=== PATIENT | female | born 1935 | race Caucasian/White ===

== ENCOUNTER 2019-10-24 03:34 | Emergency (ER) | payer OTHER ==
--- NOTE | 2019-10-24 03:43 | PDOC ---
Attending Attestation - Resident Resident Name: García Thompson - HPI HPI: 10/24/19 05:06 Pt presents to the ED after brought in by her daughter for the acute onset of aphasia. Patient was last seen well at 11:58 pm. Patient is now completely aphasic and unable to communicate or follow commands. As per the daughter, her baseline is to be oriented x 3 and completely alert. 10/24/19 05:17 - Physicial Exam PE: 10/24/19 05:11 Agree with resident exam. Patient opens her eyes to questioning, but does not speak or follow commands. Appears to have L sided neglect. Neurologic exam is difficult because the patient is unable to cooperate 10/24/19 05:14 - Medical Decision Making 10/24/19 05:13 Pt presents to the ED with the acute onset of profound neurological deficits, including aphasia and L sided neglect. Taken emergently for CT head which showed ? MCA sign. CTA shows occlusion of the MCA. Given that the patient is within the 12 hour window for vascular interventions, will intiate transfer to [facility] for neurovascular intervention. 10/24/19 05:15
--- NOTE | 2019-10-24 04:04 | PDOC ---
History of Present Illness - General Stated Complaint: POSSIBLE STROKE Time Seen by Provider: 10/24/19 03:43 - History of Present Illness Initial Comments: The pt is an 84F w/ a history of uncontrolled HTN who presented for evaluation with concern of stroke. The pt was last known well on 10/23/19 at 2358. She was about at approximately 0230 with right lower facial droop and RUE/RLE weakness as well as aphasia. Pt unable to provide history on arrival Family denies recent illness, falls, fevers, vomiting Reportedly at baseline the pt is independent, oriented, and performs her own ADLs 10/24/19 04:02 NIH Stroke Scale - Last Known Well Date/Time & Onset Date Last Known Well: 10/23/19 Time Last Known Well: 23:58 - Initial Evaluation Level of consciousness: Alert Ask patient the month and their age: Both incorrect Ask patient to open & close eyes; make fist and let go: Both incorrect Best gaze (horizontal eye movement): Normal Visual field testing: No visual field loss Facial paresis (Show teeth/raise eyebrows/close eyes tight): Partial paralysis ( total or near paralysis of lower face) (right lower face) Motor Function: Left Arm: Normal Motor Function: Right Arm: Some effort against gravity (with contracutre) Motor Function: Left Leg: Drift Motor Function: Right Leg: No effort against gravity Limb Ataxia: Present in two limbs (Pt not following instructions well) Sensory(Use pinprick test arms,legs,trunk,face/side to side): Mild to moderate decrease in sensation (RUE; but reacts with strong stimulation) Best language (Describe picture, name items, read sentences): Mute Dysarthria (read several words): Near unintelligible or unable to speak Extinction and Inattention: No abnormality - Total Score NIH Stroke Scale Score: 20 Past History - Past Medical History Allergies/Adverse Reactions: Allergies Allergy/AdvReac Type Severity Reaction Status Date / Time No Known Allergies Allergy Verified 10/24/19 03:56 Home Medications: Ambulatory Orders NK [No Known Home Medication] 10/24/19 COPD: No GI Disorders: Yes (SBO) HTN: Yes Hypercholesterolemia: Yes - Surgical History Cholecystectomy: Yes GI Surgery: Yes (twisted colon) - Immunization History Immunization Up to Date: No - Psycho Social/Smoking Cessation Hx Smoking History: Never smoked Number of Cigarettes Smoked Daily: 0 Hx Alcohol Use: No Drug/Substance Use Hx: No Substance Use Type: None Review of Systems - Review of Systems Able to Perform ROS?: No (2/2 medical condition) *Physical Exam - Vital Signs Initial Vital Signs Temp Pulse Resp BP Pulse Ox 97.6 F 90 18 157/88 97 10/24/19 03:58 10/24/19 03:58 10/24/19 03:58 10/24/19 03:58 10/24/19 03:58 10/24/19 06:20 - Physical Exam GENERAL: Awake, alert HEAD: No signs of trauma, normocephalic, atraumatic EYES: PERRLA, does not track ENT: Hearing grossly normal, nares patent, oropharynx clear without exudates LUNGS: No distress, speaks in full sentences, clear to auscultation bilaterally HEART: Regular rate and rhythm, normal S1 and S2, no murmurs appreciated, peripheral pulses normal and equal bilaterally ABDOMEN: Soft, no grimace to palpation, normoactive bowel sounds. No guarding, no rebound EXTREMITIES: Normal inspection, Normal range of motion, no edema. No clubbing or cyanosis NEUROLOGICAL: Aphasic, right lower facial droop, RUE/RLE weakness, LLE drift, does not follow commands SKIN: Warm, Dry 10/24/19 05:40 ED Treatment Course - LABORATORY CBC & Chemistry Diagram: 10/24/19 03:51 10/24/19 03:51 - RADIOLOGY Radiograph Interpretation: THIS IS A PRELIMINARY REPORT FROM IMAGING SEAM RUBBING MACHINE OPERATOR DATE OF SERVICE: 2019-10-24 03:42:58 EXAM: HEAD CT (STROKE) FINDINGS: The ventricular system is midline and nondilated. The sulcal pattern is normal for the patient's age. Mild chronic small vessel ischemic changes are noted. Density in the region of the left middle cerebral artery could represent clot . There is no bleed, mass, extra-axial fluid collection or mass effect. No skull fracture or skull lesion is identified. The visualized paranasal sinuses and mastoid air cells are clear. IMPRESSION: Possible left MCA clot and acute stroke, which can be further evaluated with CT angiography. No hemorrhage or mass-effect. THIS IS A PRELIMINARY REPORT FROM IMAGING SEAM RUBBING MACHINE OPERATOR DATE OF SERVICE: 2019-10-24 04:35:38 EXAM: BRAIN CTA (STROKE) FINDINGS: Filling defect in the M2 segment of the left cerebral artery with decreased opacification of the M2 and M3 segments is consistent with clot and acute infarct. The right middle cerebral and bilateral anterior and posterior cerebral arteries are patent. IMPRESSION: Acute clot in the M2 segment of the left middle cerebral artery 10/24/19 06:32 Medical Decision Making - Medical Decision Making The pt is an 84F w/ a history of uncontrolled HTN and HLD who presents with a L MCA occlusion NIHSS 19 CTA w/ L MCA occlusion Pt unable to tolerate PO Plan for transfer to [facility] Pt accepted by Dr. Gonzalez Consent obtained from pt's daughter No leukocytosis No anemia Lytes wnl No JONATHAN LFTs unremarkable Trop I 0.08 10/24/19 05:48 Pt noted to be hypertensive s/p IVF and in a-fib w/ RVR and in mild respiratory distress IVF stopped NTG 0.4 SL x1 given for likely hypervolemia Pt given Cardizem 10mg IVP x2 and Hydralazine 10mg IVP x1 prior to transfer for rate control and HTN Pt w/ improved HR and BP as well as respiratory status Dispo: Transfer to [facility] 10/24/19 07:21 Discharge - Discharge Information Problems reviewed: Yes Clinical Impression/Diagnosis: Left acute arterial ischemic stroke, MCA (middle cerebral artery) Condition: Critical Disposition: TRANSFER ACUTE CARE/OTHER HOSP - Admission No - Follow up/Referral Referrals: Dick Lynn [Primary Care Provider] - - Patient Discharge Instructions - Post Discharge Activity - Transfer to Acute Care Facility Receiving Facility Name: [facility] Accepting Physician:: Dr. Gonzalez
[2019-10-24 04:10] VITALS: TEMP 97.6; BMI 20.7
[2019-10-24 04:11] LABS: BASO % 0.9 % (0-2.0); EOS % 3.8 % (0-4.5); HEMATOCRIT 36.9 % (32.4-45.2); HEMOGLOBIN 11.8 GM/dL (10.7-15.3); LYMPH % 31.3 % (8-40); MCH 29.3 pg (25.7-33.7); MCHC 32.1 g/dl (32.0-36.0); MEAN CELL VOLUME 91.2 fl (80-96); MEAN PLT VOLUME 9.7 fl (7.5-11.1); MONO % 10.3 % (3.8-10.2); NEUT % 53.7 % (42.8-82.8); PLATELET COUNT 192 K/MM3 (134-434); RBC 4.05 M/mm3 (3.60-5.2); WHITE BLOOD COUNT 7.2 K/mm3 (4.0-10.0)
[2019-10-24 04:22] LABS: INR 1.03 (0.83-1.09); PROTHROMBIN TIME (PATIENT) 12.2 SEC (9.7-13.0)
[2019-10-24 04:25] LABS: ACTIVATED PTT 32.5 SECONDS (25.2-36.5)
[2019-10-24 04:46] LABS: ALBUMIN 3.7 g/dl (3.4-5.0); BILIRUBIN,TOTAL 0.2 mg/dL (0.2-1); BLOOD UREA NITROGEN 18.2 mg/dL (7-18); CREATININE 0.8 mg/dL (0.55-1.3); POTASSIUM 3.7 mmol/L (3.5-5.1); TOT PROT 7.6 g/dl (6.4-8.2)
[2019-10-24] MEDS ORDERED: dilTIAZem HCL 50 MG/10 ML - 10 ML VIAL IVPUSH ONE ×2 (05:04→06:09)
[2019-10-24] MEDS ORDERED: dilTIAZem HCL 125 MG/25 ML - 25 ML VIAL ONE (05:06)
[2019-10-24 05:43] LABS: EPI CELLS 0.1 /HPF (0-5/HPF); HYALINE CASTS 0 /lpf (0-8); PH,URINE 7.5 (5.0-8.0); URINE APPEARANCE CLEAR; URINE BACTERIA 0.2 /hpf (NEGATIVE); URINE BILIRUBIN NEGATIVE (NEGATIVE); URINE COLOR YELLOW; URINE GLUCOSE (UA) NEGATIVE (NEGATIVE); URINE KETONE NEGATIVE (NEGATIVE); URINE LEUK ESTERASE NEGATIVE (NEGATIVE); URINE NITRITE NEGATIVE (NEGATIVE); URINE PROTEIN NEGATIVE (NEGATIVE); URINE RBC 3 /hpf (0-4); URINE UROBILINOGEN 0.2 mg/dL (0.2-1.0); URINE WBC 0 /hpf (0-5)
[2019-10-24] MEDS ORDERED: hydrALAZINE HCL 20 MG/ML VIAL IVPUSH ONE (05:45)
[2019-10-24] MEDS ORDERED: hydrALAZINE HCL 20 MG/ML VIAL ONE (05:46)
[2019-10-24 06:00] VITALS: PULSE 128
[2019-10-24] MEDS ORDERED: NITROGLYCERIN SUBLINGUAL 1/150 0.4 MG TAB SL ONE (06:01)
[2019-10-24] MEDS ORDERED: NITROGLYCERIN 25MG/D5W 250ML 25 MG/250 ML ML IVPB ONE (06:01)
[2019-10-24] MEDS ORDERED: NITROGLYCERIN 25MG/D5W 250ML 25 MG/250 ML ML IVPB SCH (06:15)
[2019-10-24 06:19] VITALS: BP 156/113
--- NOTE | 2019-10-24 16:59 | EKG ---
Test Reason : Blood Pressure : / mmHG Vent. Rate : 130 BPM Atrial Rate : 113 BPM P-R Int : 000 ms QRS Dur : 086 ms QT Int : 330 ms P-R-T Axes : 000 028 215 degrees QTc Int : 485 ms ATRIAL FIBRILLATION WITH RAPID VENTRICULAR RESPONSE VOLTAGE CRITERIA FOR LEFT VENTRICULAR HYPERTROPHY MARKED ST ABNORMALITY, POSSIBLE INFERIOR SUBENDOCARDIAL INJURY MARKED ST ABNORMALITY, POSSIBLE ANTEROLATERAL SUBENDOCARDIAL INJURY ABNORMAL ECG WHEN COMPARED WITH ECG OF 24-OCT-2019 03:49, VENT. RATE HAS INCREASED T WAVE VARIATION Confirmed by DI MODI MD ([id number]) on 10/24/2019 4:59:07 PM Referred By: Confirmed By:DI MODI MD
--- NOTE | 2019-10-24 16:59 | EKG ---
Test Reason : Blood Pressure : / mmHG Vent. Rate : 103 BPM Atrial Rate : 094 BPM P-R Int : 000 ms QRS Dur : 088 ms QT Int : 364 ms P-R-T Axes : 000 039 123 degrees QTc Int : 476 ms ATRIAL FIBRILLATION WITH RAPID VENTRICULAR RESPONSE VOLTAGE CRITERIA FOR LEFT VENTRICULAR HYPERTROPHY NONSPECIFIC ST AND T WAVE ABNORMALITY ABNORMAL ECG WHEN COMPARED WITH ECG OF 16-APR-2018 15:00, ATRIAL FIBRILLATION HAS REPLACED SINUS RHYTHM VENT. RATE HAS INCREASED BY 37 BPM Confirmed by DI MODI MD ([id number]) on 10/24/2019 4:59:18 PM Referred By: Confirmed By:DI MODI MD
== END 2019-10-24 06:22 | disposition short-term general hospital (02) ==
LOC: JER 03:34
PROC: 3E033GC Introduction of Other Therapeutic Substance into Peripheral Vein, Percutaneous Approach (ICD-10-PCS; principal; 2019-10-24)
PROC: 3E033GC Introduction of Other Therapeutic Substance into Peripheral Vein, Percutaneous Approach (ICD-10-PCS; 2019-10-24)
PROC: 3E033GC Introduction of Other Therapeutic Substance into Peripheral Vein, Percutaneous Approach (ICD-10-PCS; 2019-10-24)
DX: I63.522 Cerebral infarction due to unspecified occlusion or stenosis of left anterior cerebral artery (principal); I69.320 Aphasia following cerebral infarction; I69.351 Hemiplegia and hemiparesis following cerebral infarction affecting right dominant side; I69.392 Facial weakness following cerebral infarction; R29.720 NIHSS score 20; I10 Essential (primary) hypertension; E78.00 Pure hypercholesterolemia, unspecified; Z87.19 Personal history of other diseases of the digestive system; Z90.49 Acquired absence of other specified parts of digestive tract
CPT/HCPCS: 36415; 70450-TC; 70496-TC; 71045-TC-FY; 80053; 80061; 81003; 82550; 83721; 84484; 85025; 85610; 85730; 86850; 86900; 86901; 87086; 93005; 93010; 96374; 96375; 99285-25; Q9967

== ENCOUNTER 2022-02-07 12:40 | Inpatient (IN) | payer OTHER ==
[2022-02-07 13:36] LABS: HEMATOCRIT 37.5 % (32.4-45.2); HEMOGLOBIN 12.9 G/dL (10.7-15.3); MCH 31.5 pg (25.7-33.7); MCHC 34.3 g/dl (32.0-36.0); MEAN CELL VOLUME 91.8 fl (80-96); MEAN PLT VOLUME 9.6 fl (7.5-11.1); PLATELET COUNT 191.7 10^3/uL (134-434); RBC 4.09 10^6/uL (3.60-5.2); RDW 15.4 % (11.6-15.6)
[2022-02-07 13:43] LABS: ALBUMIN 4.1 g/dl (3.4-5.0); BILIRUBIN,TOTAL 1.2 mg/dl (0.2-1); CALCIUM 9.5 mg/dl (8.5-10); CREATININE 0.8 mg/dl (0.55-1.3); MAGNESIUM 1.9 mg/dL (1.8-2.4); PHOSPHOROUS 3.6 mg/dl (2.5-4.9); TOT PROT 7.6 g/dl (6.4-8.2)
[2022-02-07 14:34] LABS: EPITHELIAL CELLS FEW /hpf
[2022-02-07] MEDS ORDERED: SODIUM CHLORIDE 0.9% 500 ML INFUS.BAG IV ONE (15:19)
[2022-02-07 18:19] VITALS: BMI 23.2
[2022-02-07] MEDS: APIXABAN 2.5 MG TABLET PO SCH (21:24)
[2022-02-07] MEDS: ESCITALOPRAM OXALATE 10 MG TABLET PO SCH (21:25)
[2022-02-07] MEDS ORDERED: ACETAMINOPHEN 325 MG TABLET (FP) PO PRN (23:54)
[2022-02-07] MEDS ORDERED: POLYETHYLENE GLYCOL (HEALTHYLAX) 3350 17 GM PACKET PO PRN (23:54)
[2022-02-08 07:52] LABS: CALCIUM 9.1 mg/dl (8.5-10); CREATININE 0.7 mg/dl (0.55-1.3)
[2022-02-08 08:02] LABS: HEMATOCRIT 34.6 % (32.4-45.2); HEMOGLOBIN 11.7 G/dL (10.7-15.3); MCH 31.1 pg (25.7-33.7); MCHC 33.7 g/dl (32.0-36.0); MEAN CELL VOLUME 92.2 fl (80-96); MEAN PLT VOLUME 9.6 fl (7.5-11.1); PLATELET COUNT 166.3 10^3/uL (134-434); RBC 3.75 10^6/uL (3.60-5.2); RDW 14.4 % (11.6-15.6); WHITE BLOOD COUNT 6.1 10^3/uL (4.0-10.8)
[2022-02-08] MEDS: APIXABAN 2.5 MG TABLET PO SCH ×2 (09:39→21:12)
[2022-02-08] MEDS: ROSUVASTATIN CA 10 MG TABLET PO SCH (09:39)
[2022-02-08] MEDS: LOSARTAN POTASSIUM 25 MG TABLET PO SCH (14:51)
[2022-02-08] MEDS: ESCITALOPRAM OXALATE 10 MG TABLET PO SCH (21:12)
[2022-02-09] MEDS: LOSARTAN POTASSIUM 25 MG TABLET PO SCH ×2 (09:33→12:30)
[2022-02-09] MEDS: APIXABAN 2.5 MG TABLET PO SCH ×4 (09:33→21:24)
[2022-02-09] MEDS: ROSUVASTATIN CA 10 MG TABLET PO SCH ×3 (09:34→14:45)
[2022-02-09 10:18] LABS: HEMATOCRIT 35.8 % (32.4-45.2); HEMOGLOBIN 12.3 G/dL (10.7-15.3); MCH 31.5 pg (25.7-33.7); MCHC 34.4 g/dl (32.0-36.0); MEAN CELL VOLUME 91.5 fl (80-96); MEAN PLT VOLUME 9.1 fl (7.5-11.1); PLATELET COUNT 174.1 10^3/uL (134-434); RBC 3.91 10^6/uL (3.60-5.2); RDW 15.1 % (11.6-15.6); WHITE BLOOD COUNT 6.4 10^3/uL (4.0-10.8)
[2022-02-09 10:31] LABS: ALBUMIN 3.5 g/dl (3.4-5.0); BILIRUBIN,TOTAL 1.3 mg/dl (0.2-1); CALCIUM 9.2 mg/dl (8.5-10); CREATININE 0.7 mg/dl (0.55-1.3); TOT PROT 6.9 g/dl (6.4-8.2)
[2022-02-09] MEDS ORDERED: POTASSIUM CHLORIDE ORAL LIQUID 20 MEQ/15 ML PO ONE (12:56)
[2022-02-09] MEDS: ESCITALOPRAM OXALATE 10 MG TABLET PO SCH (21:24)
[2022-02-10] MEDS: ROSUVASTATIN CA 10 MG TABLET PO SCH (09:26)
[2022-02-10] MEDS: LOSARTAN POTASSIUM 25 MG TABLET PO SCH (09:26)
[2022-02-10] MEDS: APIXABAN 2.5 MG TABLET PO SCH ×2 (09:26→21:10)
[2022-02-10] MEDS: ESCITALOPRAM OXALATE 10 MG TABLET PO SCH (21:10)
[2022-02-11 07:52] LABS: HEMATOCRIT 33.4 % (32.4-45.2); MCH 30.3 pg (25.7-33.7); MCHC 32.9 g/dl (32.0-36.0); MEAN CELL VOLUME 91.9 fl (80-96); MEAN PLT VOLUME 9.4 fl (7.5-11.1); PLATELET COUNT 170.6 10^3/uL (134-434); RBC 3.63 10^6/uL (3.60-5.2); RDW 14.5 % (11.6-15.6); WHITE BLOOD COUNT 5.8 10^3/uL (4.0-10.8)
[2022-02-11 08:00] LABS: CALCIUM 8.8 mg/dl (8.5-10); CREATININE 0.9 mg/dl (0.55-1.3)
[2022-02-11] MEDS: APIXABAN 2.5 MG TABLET PO SCH (09:53)
[2022-02-11] MEDS: LOSARTAN POTASSIUM 25 MG TABLET PO SCH (09:53)
[2022-02-11] MEDS: ROSUVASTATIN CA 10 MG TABLET PO SCH (09:53)
[2022-02-11 14:11] VITALS: BP 146/91; PULSE 80; TEMP 98.1
== END 2022-02-11 15:35 | disposition home or self-care (01) | DRG 312 ==
LOC: SUPCPDRO 12:40 → FER 12:40 → FM/S 16:18 → OBSVTOIN 02-09 12:37
PROVIDERS: ADMIT Internal Medicine; ATTEND Nurse Practitioner Acute Care
DX: R55 Syncope and collapse (principal); I69.351 Hemiplegia and hemiparesis following cerebral infarction affecting right dominant side; E86.0 Dehydration; F32.A Depression, unspecified; F03.90 Unspecified dementia, unspecified severity, without behavioral disturbance, psychotic disturbance, mood disturbance, and anxiety; I10 Essential (primary) hypertension; I48.91 Unspecified atrial fibrillation; I25.10 Atherosclerotic heart disease of native coronary artery without angina pectoris; E78.5 Hyperlipidemia, unspecified; R42 Dizziness and giddiness
CPT/HCPCS: 36415; 70450-TC; 70486-TC; 71045-TC-FY; 72125-TC; 72170-TC-FY; 80048; 80053; 81003; 81015; 82607; 83735; 84100; 84443; 84484; 85025; 85027; 86780; 87086; 93005; 93306-TC; 97116-GP; 97162-GP; 99285-25; C9803-CS; G0378; U0003; U0005